=== PATIENT | male | born 1965 | race Caucasian/White ===

== ENCOUNTER 2024-10-27 12:41 | Emergency (ER) | payer OTHER ==
[2024-10-27] MEDS ORDERED: Sodium Chloride 0.9% 10 ML Syringe FLUSH PRN (12:58)
[2024-10-27] MEDS: Sulfamethoxazole/Trimethoprim 800-160 MG Tab PO ONE (13:18)
[2024-10-27] MEDS: Take Home: Sulfamethoxazole/Trimethoprim 800-160 MG Tab, 6 Tab Pack PO ONE (13:18)
[2024-10-27] MEDS: ceFAZolin 2 GM Vial IVPUSH ONE (13:18)
[2024-10-27] MEDS ORDERED: ceFAZolin 2 GM Vial IVPUSH SCH (21:00)
== END 2024-10-27 13:50 | disposition home or self-care (01) ==
LOC: VM.ED 12:41 → MERGE 12:41 → VM.ED 13:50
DX: L03.113 Cellulitis of right upper limb (principal)
CPT/HCPCS: 87070; 87077; 87147; 96374; 99283; 99283-25; A9270-GY; J0690

== ENCOUNTER 2024-11-01 14:01 | Emergency (ER) | payer OTHER | END 2024-11-01 14:30 | disposition home or self-care (01) | LOC: VM.ED 14:01 | DX: L03.115 Cellulitis of right lower limb (principal); Z79.899 Other long term (current) drug therapy | CPT/HCPCS: 99283 ==